=== PATIENT | female | born 1965 | race Two or more races ===

== ENCOUNTER 2022-01-16 18:21 | Emergency (ER) | payer OTHER ==
[~2022-01-16] VITALS: Ht 167.6 cm; Wt 88.5 kg
[2022-01-16] MEDS ORDERED: LISINOPRIL 10 MG (19:10)
== END 2022-01-16 20:38 | disposition home or self-care (01) ==
LOC: ER 18:21
DX: S52.532A Colles' fracture of left radius, initial encounter for closed fracture (principal); W10.0XXA Fall (on)(from) escalator, initial encounter; Y93.9 Activity, unspecified; Y92.039 Unspecified place in apartment as the place of occurrence of the external cause